=== PATIENT | female | born 1990 | race African-American/Black ===

== ENCOUNTER 2017-06-23 18:40 | Emergency (ER) | payer OTHER ==
[2017-06-23 18:54] VITALS: BP 117/87; PULSE 105; TEMP 98.3; BMI 28.3
--- NOTE | 2017-06-23 20:09 | PDOC ---
History of Present Illness - General History Source: Patient Exam Limitations: No Limitations <Anders Tsang - Last Filed: 06/23/17 20:02> - History of Present Illness Initial Comments: 06/23/17 20:09 The patient is a 26 year old female, with no significant past medical history, who presents to the emergency department with sudden onset of allergic reaction secondary to eating shrimp this evening. She reports having a similar reaction to shrimp in the past, but was unsure if it was an allergy. She states she subsequently developed hives diffuse over her body and slight SOB. She reports resolution of her symptoms after treatment with EMS. She denies chest pain, headache and dizziness. She denies fever, chills, nausea , vomit, diarrhea and constipation. She denies dysuria, frequency, urgency and hematuria. Allergies: NKDA Past surgical history: none reported Social history: Pt denies toxic habits <Melania Byers - Last Filed: 06/23/17 20:10> - General Chief Complaint: Allergic Reaction Stated Complaint: ALLERGIC REACTION Time Seen by Provider: 06/23/17 19:58 Past History - Past Medical History COPD: No - Suicide/Smoking/Psychosocial Hx Smoking History: Never smoked Hx Alcohol Use: No Drug/Substance Use Hx: No Substance Use Type: None <Anders Tsang - Last Filed: 06/23/17 20:02> <Melania Byers - Last Filed: 06/23/17 20:10> - Past Medical History Allergies/Adverse Reactions: Allergies Allergy/AdvReac Type Severity Reaction Status Date / Time No Known Allergies Allergy Verified 06/23/17 18:46 Home Medications: Ambulatory Orders Acetaminophen/Caffeine/Butalb [Fioricet -] 2 tab PO Q6H #30 tablet MDD 8 Aspirin/Acetaminophen/Caffeine [Excedrin Migraine Caplet] 2 each PO QID #30 tablet 02/09/16 Diphenhydramine HCl [Benadryl Capsules -] 25 mg PO TID #30 capsule 06/23/17 Loratadine [Claritin] 10 mg PO DAILY #30 tablet 06/23/17 Prednisone [Deltasone -] 40 mg PO DAILY #14 tablet 06/23/17 Review of Systems - Review of Systems Able to Perform ROS?: Yes Comments:: 06/23/17 20:10 CONSTITUTIONAL: Absent: fever, chills, diaphoresis, generalized weakness, malaise, loss of appetite HEENT: Absent: rhinorrhea, nasal congestion, throat pain, throat swelling, difficulty swallowing, mouth swelling, ear pain, eye pain, visual Changes CARDIOVASCULAR: Absent: chest pain, syncope, palpitations, irregular heart rate, lightheadedness , peripheral edema RESPIRATORY: (+) shortness of breath (resolved now), Absent: cough, dyspnea with exertion, orthopnea, wheezing, stridor, hemoptysis GASTROINTESTINAL: Absent: abdominal pain, abdominal distension, nausea, vomiting, diarrhea, constipation, melena, hematochezia GENITOURINARY: Absent: dysuria, frequency, urgency, hesitancy, hematuria, flank pain, genital pain MUSCULOSKELETAL: Absent: myalgia, arthralgia, joint swelling SKIN: (+) hives diffusely (resolved now). Absent: rash, itching, pallor HEMATOLOGIC/IMMUNOLOGIC: Absent: easy bleeding, easy bruising, lymphadenopathy, frequent infections ENDOCRINE: Absent: unexplained weight gain, unexplained weight loss, heat intolerance, cold intolerance NEUROLOGIC: Absent: headache, focal weakness or paresthesias, dizziness, unsteady gait, seizure, mental status changes, bladder or bowel incontinence PSYCHIATRIC: Absent: anxiety, depression, suicidal or homicidal ideation, hallucinations. <Melania Byers - Last Filed: 06/23/17 20:10> *Physical Exam - Vital Signs Last Vital Signs Temp Pulse Resp BP Pulse Ox 98.3 F 105 H 20 117/87 99 06/23/17 18:47 06/23/17 18:47 06/23/17 18:47 06/23/17 18:47 06/23/17 18:47 <Anders Tsang - Last Filed: 06/23/17 20:02> - Vital Signs Last Vital Signs Temp Pulse Resp BP Pulse Ox 98.3 F 105 H 20 117/87 99 06/23/17 18:47 06/23/17 18:47 06/23/17 18:47 06/23/17 18:47 06/23/17 18:47 - Physical Exam Comments: 06/23/17 20:10 GENERAL: Well developed, well nourished. Awake and alert. No acute distress. HEENT: Normocephalic, atraumatic. PERRLA, EOMI. No conjunctival pallor. Sclera are non- icteric. Moist mucous membranes. Oropharynx is clear. NECK: Supple. Full ROM. No JVD. Carotid pulses 2+ and symmetric, without bruits. No thyromegaly. No lymphadenopathy. CARDIOVASCULAR: Regular rate and rhythm. No murmurs, rubs, or gallops. Distal pulses are 2+ and symmetric. PULMONARY: No evidence of respiratory distress. Lungs clear to auscultation bilaterally. No wheezing, rales or rhonchi. ABDOMINAL: Soft. Non-tender. Non-distended. No rebound or guarding. No organomegaly. Normoactive bowel sounds. MUSCULOSKELETAL Normal range of motion at all joints. No bony deformities or tenderness. No CVA tenderness. EXTREMITIES: No cyanosis. No clubbing. No edema. No calf tenderness. SKIN: Warm and dry. Normal capillary refill. No rashes. No jaundice. NEUROLOGICAL: Alert, awake, appropriate. Cranial nerves 2-12 intact. Normoreflexic in the upper and lower extremities. Normal speech. Toes are down-going bilaterally. Gait is normal without ataxia. PSYCHIATRIC: Cooperative. Good eye contact. Appropriate mood and affect. <Melania Byers - Last Filed: 06/23/17 20:10> Medical Decision Making - Medical Decision Making 06/23/17 20:06 Dr. Tsang: The scribe's documentation has been prepared under my direction and personally reviewed by me in its entirery. I confirm that the note above accurately reflects all work, treatment, procedures, and medical decision making performed by me. Pt feels better after pt received treatment by EMS. NO wheezing or lesions anywhere on her body. Pt will be discharged. Rx sent to pharmacy <Anders Tsang - Last Filed: 06/23/17 20:02> *DC/Admit/Observation/Transfer - Discharge Dispostion Admit: No <Anders Tsang - Last Filed: 06/23/17 20:02> - Attestations Scribe Attestion: 06/23/17 20:10 Documentation prepared by Melania Byers, acting as director of graduate medical education for Anders Tsang DO <Melania Byers - Last Filed: 06/23/17 20:10> Diagnosis at time of Disposition: Allergic reaction Qualifiers: Encounter type: initial encounter Qualified Code(s): T78.40XA - Allergy, unspecified, initial encounter - Discharge Dispostion Disposition: HOME Condition at time of disposition: Stable - Prescriptions Prescriptions: Diphenhydramine HCl [Benadryl Capsules -] 25 mg PO TID #30 capsule Loratadine [Claritin] 10 mg PO DAILY #30 tablet Prednisone [Deltasone -] 40 mg PO DAILY #14 tablet - Referrals Referrals: Malorie Alarcon MD [Primary Care Provider] - - Patient Instructions Printed Discharge Instructions: DI for General Allergic Reactions - Post Discharge Activity
[2017-06-23] MEDS ORDERED: predniSONE 20 MG TABLET (UD) PO ONE (20:10)
[2017-06-23] MEDS ORDERED: predniSONE 20 MG TABLET (UD) ONE (20:13)
== END 2017-06-23 20:18 | disposition home or self-care (01) ==
LOC: JER 18:40
DX: T78.1XXA Other adverse food reactions, not elsewhere classified, initial encounter (principal); L50.0 Allergic urticaria; X58.XXXA Exposure to other specified factors, initial encounter
CPT/HCPCS: 99281-25

== ENCOUNTER 2017-09-09 13:00 | Emergency (ER) | payer OTHER ==
[2017-09-09 13:21] VITALS: BP 120/77; PULSE 82; TEMP 98.9; BMI 29.8
--- NOTE | 2017-09-09 13:36 | PDOC ---
History of Present Illness - General Chief Complaint: Cold Symptoms Stated Complaint: FLU Time Seen by Provider: 09/09/17 13:15 - History of Present Illness Initial Comments: 09/09/17 13:37 Chief complaint: Flu symptoms History of present illness: 2 days with congestion, sore throat, earache, body aches. No fever, chest pain, shortness of breath, nausea, vomiting, diarrhea Review of systems: As above. Otherwise negative Past medical history: Healthy female, no past her present medical or surgical problems of a significant nature. No medications other than Tylenol at home. Social history: Works in a retirement, no tobacco alcohol or nonprescription drugs Family history: Reviewed and noncontributory Physical exam: Alert oriented well-developed well-nourished no acute distress cooperative Afebrile vital signs normal HEENT clear Neck supple without bruit mass or nodes Chest clear CV regular without murmur rub or gallop Abdomen benign Skin clear, no rash, adequate turgor and wet mucous membranes Neurological intact gait stable and unimpaired Impression: Probable influenza Plan: Tamiflu, rest fluids Tylenol or Advil, recheck if symptoms worsen, especially if there is chest pain, shortness of breath, nausea vomiting or diarrhea. Past History - Past Medical History Allergies/Adverse Reactions: Allergies Allergy/AdvReac Type Severity Reaction Status Date / Time No Known Allergies Allergy Verified 09/09/17 13:16 Home Medications: Ambulatory Orders Oseltamivir Phosphate [Tamiflu] 75 mg PO BID #10 capsule 09/09/17 COPD: No - Suicide/Smoking/Psychosocial Hx Smoking History: Never smoked Hx Alcohol Use: No Drug/Substance Use Hx: No Substance Use Type: None *Physical Exam - Vital Signs Last Vital Signs Temp Pulse Resp BP Pulse Ox 98.9 F 82 15 120/77 100 09/09/17 13:12 09/09/17 13:12 09/09/17 13:12 09/09/17 13:12 09/09/17 13:12 *DC/Admit/Observation/Transfer Diagnosis at time of Disposition: Viral upper respiratory infection - Discharge Dispostion Disposition: HOME Condition at time of disposition: Stable Admit: No - Prescriptions Prescriptions: Oseltamivir Phosphate [Tamiflu] 75 mg PO BID #10 capsule - Referrals Referrals: Malorie Alarcon MD [Primary Care Provider] - 3 days - Patient Instructions Printed Discharge Instructions: DI for Viral Upper Respiratory Infection -- Adult Additional Instructions: Rest, lots of fluids, Tylenol or Advil for fever or body aches, prescription medication as directed. Return for recheck if symptoms worsen, especially if there is chest pain, shortness of breath, abdominal pain, nausea, vomiting, diarrhea, or high fever. Otherwise follow-up with your primary physician - Post Discharge Activity Forms/Work/School Notes: Back to Work
== END 2017-09-09 13:49 | disposition home or self-care (01) ==
LOC: FER 13:05
DX: J06.9 Acute upper respiratory infection, unspecified (principal)
CPT/HCPCS: 99281-25

== ENCOUNTER 2017-10-14 13:22 | Emergency (ER) | payer OTHER ==
--- NOTE | 2017-10-14 13:30 | PDOC ---
Rapid Medical Evaluation Chief Complaint: Chest Pain Time Seen by Provider: 10/14/17 13:28 Medical Evaluation: Allergies Allergy/AdvReac Type Severity Reaction Status Date / Time No Known Allergies Allergy Verified 10/14/17 13:28 10/14/17 13:29 The patient presents with a chief complaint of: chest pain I have performed a brief in-person evaluation of this patient. Pertinent physical exam findings: vss, I have ordered the following: ekg The patient will proceed to the ED for further evaluation.
[2017-10-14 13:32] VITALS: BP 132/58; PULSE 88; TEMP 98.3; BMI 30.4
--- NOTE | 2017-10-14 14:01 | PDOC ---
History of Present Illness - General Chief Complaint: Chest Pain Stated Complaint: SOB Time Seen by Provider: 10/14/17 13:28 History Source: Patient - History of Present Illness Presenting Symptoms: Chest Pain Timing/Duration: reports: intermittent Severity/Quality: reports: mild Past History - Past Medical History Allergies/Adverse Reactions: Allergies Allergy/AdvReac Type Severity Reaction Status Date / Time No Known Allergies Allergy Verified 10/14/17 13:28 Home Medications: Ambulatory Orders NK [No Known Home Medication] 10/14/17 COPD: No Other medical history: DENIES. - Surgical History Appendectomy: Yes - Suicide/Smoking/Psychosocial Hx Smoking History: Never smoked Hx Alcohol Use: No Drug/Substance Use Hx: No Substance Use Type: None Review of Systems - Review of Systems Constitutional: No: Chills, Fever Respiratory: No: Cough, Shortness of Breath Cardiac (ROS): Yes: Chest Pain. No: Lightheadedness, Palpitations, Syncope *Physical Exam - Vital Signs Last Vital Signs Temp Pulse Resp BP Pulse Ox 98.3 F 88 19 132/58 99 10/14/17 13:28 10/14/17 13:28 10/14/17 13:28 10/14/17 13:28 10/14/17 13:28 - Physical Exam General Appearance: Yes: Appropriately Dressed. No: Apparent Distress HEENT: positive: Normal Voice Neck: positive: Supple Respiratory/Chest: positive: Lungs Clear, Normal Breath Sounds. negative: Respiratory Distress Cardiovascular: positive: Regular Rate, S1, S2 Extremity: positive: Normal Inspection Integumentary: positive: Dry, Warm Neurologic: positive: Fully Oriented, Alert, Normal Mood/Affect ED Treatment Course - ADDITIONAL ORDERS Additional order review: Laboratory Results 10/14/17 14:06 Urine HCG, Qual Negative - RADIOLOGY Radiology Studies Ordered: Category Date Time Status CHEST PA & LAT [RAD] Stat Radiology 10/14/17 13:48 Ordered Medical Decision Making - Medical Decision Making 10/14/17 13:58 26-year-old female, denies any past medical history here with chest pain. Patient reports sharp L sided, non-radiating chest pain x 1 week. States pain lasts for seconds and worse with deep inspiration. Otherwise, no shortness of breath and denies palpitations, diaphoresis, dizziness, leg pain or swelling. No cough, f/c. Patient not on control. No other obvious risk factors for DVT/PE. No h/o similar pain See exam CP Complained of cough at triage but not to me No comormidities PERCs out Well shanon and stable w/ unremarkable exam EKG done at triage and unremarkable as d/w ED attg -CXR pending -anticipate dc w/ PMD f/u 10/14/17 15:32 Patient eloped while waiting for chest x-ray as per ER nurse. I then called patient several times in the waiting room and no answer. *DC/Admit/Observation/Transfer Diagnosis at time of Disposition: Chest pain Qualifiers: Chest pain type: unspecified Qualified Code(s): R07.9 - Chest pain, unspecified - Discharge Dispostion Disposition: ELOPED Condition at time of disposition: Stable - Referrals Referrals: Malorie Alarcon MD [Primary Care Provider] - - Patient Instructions Printed Discharge Instructions: DI for Atypical Chest Pain - Post Discharge Activity Forms/Work/School Notes: Back to Work
--- NOTE | 2017-10-14 14:32 | EKG ---
Test Reason : Blood Pressure : / mmHG Vent. Rate : 070 BPM Atrial Rate : 070 BPM P-R Int : 142 ms QRS Dur : 084 ms QT Int : 350 ms P-R-T Axes : 059 067 036 degrees QTc Int : 378 ms SINUS RHYTHM WITH MARKED SINUS ARRHYTHMIA OTHERWISE NORMAL ECG WHEN COMPARED WITH ECG OF 09-FEB-2016 00:33, NO SIGNIFICANT CHANGE WAS FOUND Confirmed by WAYNE FLORES MD ([id number]) on 10/14/2017 2:32:15 PM Referred By: Confirmed By:WAYNE FLORES MD
== END 2017-10-14 15:27 | disposition left against medical advice (07) ==
LOC: JERFT 13:22
DX: R07.9 Chest pain, unspecified (principal)
CPT/HCPCS: 84703; 93005; 93010; 99281-25

== ENCOUNTER 2017-10-31 19:15 | Emergency (ER) | payer OTHER ==
[2017-10-31 19:18] VITALS: BP 109/64; PULSE 77; TEMP 99; BMI 30.4
--- NOTE | 2017-10-31 19:26 | PDOC ---
History of Present Illness - General History Source: Patient Exam Limitations: No Limitations - History of Present Illness Initial Comments: 10/31/17 19:35 A portion of this note was documented by scribe services under my direction. I have reviewed the details of the note, within reason, and agree with the documentation. The case summary and management plan written by me. Assessment and plan: This is a 26 her old female who comes in complaining of 2 days of sore throat. Patient denies any fevers, shortness of breath, cough, congestion or any other symptoms. Patient on exam has an exam that is consistent with a viral pharyngitis as it is no exudate lymphadenopathy or fevers. Patient reassured and told that all she needs a symptomatic relief and disch. patient comes in with her mother who has same symptoms as her. <Denise Meier I - Last Filed: 10/31/17 19:35> - History of Present Illness Initial Comments: 10/31/17 19:41 The patient is a 26 year old female, with no significant past medical history, who presents to the emergency department with, two days of sore throat. The patient states that beginning yesterday she began to notice an ear itching sensation and reports a mild sore throat. The patient also states she has a slight non productive cough. The patient states she visited her uncle recently who is currently sick. She denies recent fevers, chills, headache or dizziness. She denies recent nausea, vomit, diarrhea or constipation. She denies recent dysuria, frequency, urgency or hematuria. She denies recent chest pain or shortness of breath PAST MEDICAL HISTORY: no significant history PAST SURGICAL HISTORY: no significant history FAMILY HISTORY: no pertinent history SOCIAL HISTORY: Pt lives with family and is employed. MEDICATIONS: reviewed ALLERGIES: As per nursing notes Review of Systems General: No fevers or chills, no weakness, no weight loss HEENT: +Sore throat. +Bilateral ear discomfort/ itchy sensation. No change in vision. CardioVascular: No chest pain or shortness of breath Respiratory: +Nonproductive cough. No wheezing. Gastrointestinal: no nausea, vomiting, diarrhea or constipation, No rectal bleeding Genitourinary: No dysuria, hematuria, or frequency Musculoskeletal: No joint or muscle pain or swelling Neurologic: No headache, vertigo, dizziness or loss of consciousness Psychiatric: nor depression Skin: No rashes or easy bruising Endocrine: no increased thirst or abnormal weight change Allergic: no skin or latex allergy All other systems reviewed and normal Physical Exam GENERAL: The patient is awake, alert, and fully oriented, in no acute distress. HEAD: Normal with no signs of trauma. EYES: Pupils equal, round and reactive to light, extraocular movements intact, sclera anicteric, conjunctiva clear. EAR: Tympanic membranes and external ear canals were normal. THROAT: +Mild erythema posterior oropharynx. No lymphadenopathy. No exudates. EXTREMITIES: Normal range of motion, no edema. NEUROLOGICAL: Normal speech, normal gait. PSYCH: Normal mood, normal affect. SKIN: Warm, Dry, normal turgor, no rashes or lesions noted. <Néstor Thrasher - Last Filed: 10/31/17 19:55> - General Chief Complaint: Sore Throat Stated Complaint: SORE THROAT Time Seen by Provider: 10/31/17 19:25 Past History - Past Medical History COPD: No - Surgical History Appendectomy: Yes - Suicide/Smoking/Psychosocial Hx Smoking History: Never smoked Hx Alcohol Use: No Drug/Substance Use Hx: No Substance Use Type: None <Denise Meier I - Last Filed: 10/31/17 19:35> <Néstor Thrasher - Last Filed: 10/31/17 19:55> - Past Medical History Allergies/Adverse Reactions: Allergies Allergy/AdvReac Type Severity Reaction Status Date / Time No Known Allergies Allergy Verified 10/14/17 13:28 Home Medications: Ambulatory Orders NK [No Known Home Medication] 10/14/17 *Physical Exam - Vital Signs Last Vital Signs Temp Pulse Resp BP Pulse Ox 99 F 77 16 109/64 100 10/31/17 19:16 10/31/17 19:16 10/31/17 19:16 10/31/17 19:16 10/31/17 19:16 <Denise Meier I - Last Filed: 10/31/17 19:35> - Vital Signs Last Vital Signs Temp Pulse Resp BP Pulse Ox 99 F 77 16 109/64 100 10/31/17 19:16 10/31/17 19:16 10/31/17 19:16 10/31/17 19:16 10/31/17 19:16 <Néstor Thrasher - Last Filed: 10/31/17 19:55> *DC/Admit/Observation/Transfer - Discharge Dispostion Admit: No <Denise Meier I - Last Filed: 10/31/17 19:35> - Attestations Scribe Attestion: 10/31/17 19:43 Documentation prepared by Néstor Thrasher, acting as certified medical coder for Denise Meier MD. <Néstor Thrasher - Last Filed: 10/31/17 19:55> Diagnosis at time of Disposition: Acute viral pharyngitis - Discharge Dispostion Disposition: HOME Condition at time of disposition: Stable - Referrals Referrals: Malorie Alarcon MD [Primary Care Provider] - - Patient Instructions Printed Discharge Instructions: Viral Pharyngitis Additional Instructions: Your symptoms are secondary to a virus which will run its course without need for further intervention Tylenol or Motrin as needed for discomfort or feversReturn to the emergency department immediately with ANY new, persistent or worsening symptoms. Continue any medications as previously prescribed by your physician. You should follow up with your primary doctor as soon as possible regarding today's emergency department visit. . Please make sure your doctor reviews the results of your emergency evaluation. Thank you for coming to the Emergency Department today for your care. It was a pleasure to see you today. Please note that your evaluation is INCOMPLETE until you follow-up with your doctor. - Post Discharge Activity
== END 2017-10-31 19:45 | disposition home or self-care (01) ==
LOC: FER 19:15
DX: J02.9 Acute pharyngitis, unspecified (principal); B97.89 Other viral agents as the cause of diseases classified elsewhere
CPT/HCPCS: 99281-25

== ENCOUNTER 2018-04-24 22:35 | Emergency (ER) | payer OTHER ==
[2018-04-24 22:39] VITALS: BP 117/72; PULSE 80; TEMP 98.6; BMI 30.9
--- NOTE | 2018-04-25 00:17 | PDOC ---
History of Present Illness <Ginny Neumann - Last Filed: 04/25/18 01:17> - General History Source: Patient Exam Limitations: No Limitations - History of Present Illness Initial Comments: 04/25/18 00:35 27 year old female with no PMH presenting to ED for right sided chest pain since 0530 yesterday. She states that she awoke from bed with sharp, right sided chest pain, 10/10, non-radiating, constant, no alleviating factors, aggravated by inspiration and movement. She admits to right arm weakness secondary to pain, and right sided neck pain with movement. She also admits to 1 episode of right sided facial numbness when she awoke yesterday morning at 0300, she went back to sleep and it self-resolved by time she awoker again at 0530. She denies fever, chills, nausea, vomiting, diarrhea, abdominal pain, palpitations, shortness of breath, headache. PCP - Dr. Amado Allergies - Amoxicillin Surgical Hx - appendectomy, age 16 yo Denies nicotine use, etoh use, illicit drug use <Moira Baker - Last Filed: 04/25/18 01:23> - General Chief Complaint: Head/Neck problem Stated Complaint: CHEST PAIN/ RIGHT SIDE BODY PAIN Time Seen by Provider: 04/25/18 00:16 Past History <Ginny Neumann - Last Filed: 04/25/18 01:17> - Past Medical History COPD: No - Surgical History Appendectomy: Yes - Suicide/Smoking/Psychosocial Hx Smoking History: Never smoked Hx Alcohol Use: No Drug/Substance Use Hx: No Substance Use Type: None <Moira Baker - Last Filed: 04/25/18 01:23> - Past Medical History Allergies/Adverse Reactions: Allergies Allergy/AdvReac Type Severity Reaction Status Date / Time amoxicillin Allergy Verified 04/24/18 22:39 Home Medications: Ambulatory Orders Ibuprofen [Motrin -] 600 mg PO TID #30 tablet 04/25/18 Methocarbamol [Robaxin -] 500 mg PO TID #30 tablet 04/25/18 Review of Systems - Review of Systems Able to Perform ROS?: Yes Comments:: 04/25/18 00:38 General: denies fever, chills, night sweats, generalized weakness. HEENT: denies sore throat, rhinorrhea, ear pain. Heart: admits to chest pain. denies palpitations, syncope, lower extremity swelling, diaphoresis. Respiratory: denies shortness of breath, cough, sputum production, hemoptysis. Abdomen: denies abdominal pain, nausea, vomiting, diarrhea, constipation, blood in stool. : denies dysuria, increased urinary frequency, hematuria, urinary incontinence , flank pain. Back: denies back pain. Musculoskeletal: admits to right sided neck pain, admits to right arm pain. Neurological: admits to numbness, weakness. denies headache, dizziness, tingling. Skin: denies rash, laceration, abrasion. <Moira Baker - Last Filed: 04/25/18 01:23> *Physical Exam - Vital Signs Last Vital Signs Temp Pulse Resp BP Pulse Ox 98.6 F 80 18 117/72 100 04/24/18 22:36 04/24/18 22:36 04/24/18 22:36 04/24/18 22:36 04/24/18 22:36 <Ginny Neumann - Last Filed: 04/25/18 01:17> - Vital Signs Last Vital Signs Temp Pulse Resp BP Pulse Ox 98.6 F 80 18 117/72 100 04/24/18 22:36 04/24/18 22:36 04/24/18 22:36 04/24/18 22:36 04/24/18 22:36 - Physical Exam Comments: 04/25/18 00:40 Constitutional: Well-nourished, Well-developed, appearing stated age. HEENT: head is normocephalic, atraumatic. EOMI. PERRLA. Neck: supple. Full ROM. no midline c-spine tenderness. tenderness to palpation of right sternocleidomastoid. tenderness to palpation of right trapezius. reproduction of pain with extension of right arm. Heart: regular rhythm. no murmurs, rubs or gallops. Lungs: clear to auscultation bilaterally. no crackles, rhonchi or wheezing. no stridor. Abdomen: soft, nontender. normal bowel sounds. no rebound, guarding, masses. Extremities: Peripheral pulses intact and equal. No lower extremity edema. Neurological: Alert. Oriented x3. CN2-12 intact. 5/5 strength all extremities. Full and equal sensation to all extremities and bilateral face. Romberg negative. Finger to nose normal. Gait normal. Psych: awake, alert, oriented x3. Follows commands. Answers questions appropriately. <Moira Baker - Last Filed: 04/25/18 01:23> ED Treatment Course - Medications Given in the ED: ED Medications Discontinued Medications Generic Name Dose Route Start Last Admin Trade Name Sayda PRN Reason Stop Dose Admin Cyclobenzaprine HCl 5 mg 04/25/18 00:34 04/25/18 00:43 Flexeril - PO 04/25/18 00:35 5 mg ONCE ONE Administration Ketorolac Tromethamine 60 mg 04/25/18 00:33 04/25/18 00:43 Toradol Injection - IM 04/25/18 00:34 60 mg ONCE ONE Administration <Ginny Neumann - Last Filed: 04/25/18 01:17> Medical Decision Making - Medical Decision Making 04/25/18 00:41 27 year old female with no PMH presenting to ED for right sided chest pain since 529 yesterday. She states that she awoke from bed with sharp, right sided chest pain, 10/10, non-radiating, constant, no alleviating factors, aggravated by inspiration and movement. Pain is associated with self-reported right arm weakness/pain and right sided neck pain. Initial Vital Signs Temp Pulse Resp BP Pulse Ox 98.6 F 80 18 117/72 100 04/24/18 22:36 04/24/18 22:36 04/24/18 22:36 04/24/18 22:36 04/24/18 22:36 Afebrile. No tachycardia. No hypertension or hypotension. No hypoxia on room air. Pain is likely musculoskeletal in origin, reproducible with neck movement, right arm extension and breathing. - Toradol ordered - Flexeril ordered Low suspicion for ACS/arrhythmia, 27 years old, no palpitations, no tachycardia or bradycardia, normal heart sounds. - No EKG indicated at this time. Low suspicion for PE - WELLS score = 0 - PERC score = 0 - No CTA indicated at this time 04/25/18 01:22 Pt reports pain is slightly improved. Pt will be discharged with Roboxin prescription, follow up instructions, and strict return precautions. <Moira Baker - Last Filed: 04/25/18 01:23> *DC/Admit/Observation/Transfer - Discharge Dispostion Decision to Admit order: No <Ginny Neumann - Last Filed: 04/25/18 01:17> - Discharge Dispostion Decision to Admit order: No <Moira Baker - Last Filed: 04/25/18 01:23> Diagnosis at time of Disposition: Chest pain - Discharge Dispostion Disposition: HOME Condition at time of disposition: Stable - Prescriptions Prescriptions: Ibuprofen [Motrin -] 600 mg PO TID #30 tablet Methocarbamol [Robaxin -] 500 mg PO TID #30 tablet - Referrals Referrals: Malorie Alarcon MD [Primary Care Provider] - - Patient Instructions Printed Discharge Instructions: DI for Muscle Strain Additional Instructions: Your pain is likely due to a muscle strain. Rest the affected area for 5 days or until pain resides. Take tylenol or motrin over the counter for pain. Drink lots of clear fluids, like water or gatorade, to stay hydrated. I have sent a prescription to your pharmacy for a muscle relaxer. 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 Take as prescribed. Do not drive tonight. Do not drive when you take the muscle relaxer. Return to the Emergency Department for increasing pain, palpitations, shortness of breath, coughing up blood, leg swelling, calf pain, passing out, lightheadedness or any other new, worsening or concerning symptoms. Follow up with your primary care doctor within 5 days. Call their office thursday and tell them you were seen in the Emergency Department and make an appointment for as soon as they have available. - Post Discharge Activity Forms/Work/School Notes: Back to Work
--- NOTE | 2018-04-25 00:20 | PDOC ---
Attending Attestation - HPI HPI: 04/25/18 00:52 The patient is a 27 year old female, with no significant past medical history, who presents to the emergency department with, right sided chest pain since this morning. The patient describes her pain as constant, sharp, pleuritic, and worsening with movement. The patient also endorses decreased ROM of the right hand secondary to pain. She denies recent shortness of breath or palpitations. She denies recent fevers , chills, headache or dizziness. She denies recent nausea, vomit, diarrhea or constipation. She denies recent dysuria, frequency, urgency or hematuria. Allergies: Amoxicillin Primary Care Physician: Dr. Alarcon - Physicial Exam PE: 04/25/18 01:18 GENERAL: Awake, alert, and fully oriented, in no acute distress HEAD: No signs of trauma EYES: PERRLA, EOMI, sclera anicteric, conjunctiva clear ENT: Auricles normal inspection, hearing grossly normal, nares patent, oropharynx clear without exudates. Moist mucosa NECK: Normal ROM, supple, no lymphadenopathy, JVD, or masses LUNGS: Breath sounds equal, clear to auscultation bilaterally. No wheezes, and no crackles HEART: Regular rate and rhythm, normal S1 and S2, no murmurs, rubs or gallops ABDOMEN: Soft, nontender, normoactive bowel sounds. No guarding, no rebound. No masses EXTREMITIES: Normal range of motion, no edema. No clubbing or cyanosis. No cords, erythema, or tenderness NEUROLOGICAL: Cranial nerves II through XII grossly intact. Normal speech, normal gait SKIN: Warm, Dry, normal turgor, no rashes or lesions noted. <Miguelangel Padgett - Last Filed: 04/25/18 01:18> - Resident Resident Name: Moira Baker - ED Attending Attestation I have performed the following: I have examined & evaluated the patient, The case was reviewed & discussed with the resident, I agree w/resident's findings & plan - Medical Decision Making 04/25/18 04:01 Pt has a completely normal exam. She will be discharged home with muscle relaxants and pain meds. She took no meds for the pain. <Ginny Neumann - Last Filed: 04/25/18 04:02> Attestations - Attestations 04/25/18 00:53 Documentation prepared by Miguelangel Padgett, acting as director medical surgical for Ginny Neumann MD. <Miguelangel Padgett - Last Filed: 04/25/18 01:18>
[2018-04-25] MEDS ORDERED: KETOROLAC TROMETHAMINE 60 MG/2 ML VIAL IM ONE (00:33)
[2018-04-25] MEDS ORDERED: CYCLOBENZAPRINE HCL 10 MG TABLET (FP) PO ONE (00:34)
[2018-04-25] MEDS ORDERED: KETOROLAC TROMETHAMINE 60 MG/2 ML VIAL ONE (00:37)
[2018-04-25] MEDS ORDERED: CYCLOBENZAPRINE HCL 10 MG TABLET (FP) ONE (00:38)
== END 2018-04-25 01:23 | disposition home or self-care (01) ==
LOC: JER 22:35
PROC: 3E0233Z Introduction of Anti-inflammatory into Muscle, Percutaneous Approach (ICD-10-PCS; principal; 2018-04-24)
DX: R07.9 Chest pain, unspecified (principal)
CPT/HCPCS: 96372; 99283-25

== ENCOUNTER 2018-10-07 09:05 | Emergency (ER) | payer OTHER ==
[2018-10-07 09:16] VITALS: BP 112/73; PULSE 83; TEMP 98.4; BMI 31.7
--- NOTE | 2018-10-07 09:54 | PDOC ---
History of Present Illness - General Chief Complaint: Chest Pain Stated Complaint: CHEST PAIN Time Seen by Provider: 10/07/18 09:29 History Source: Patient Exam Limitations: Clinical Condition - History of Present Illness Initial Comments: 10/07/18 09:49 Patient with no significant past medical history present with complaint of 6 day history of persistent yellow productive cough with chest pain from coughing , nasal congestion and runny nose. Patient denies shortness of breath, palpitation, fever, chills, nausea, vomiting or sweats. Patient denies any numbness or tingling sensation. Denies headache, dizziness or lightheadedness.Patient denies any other symptoms Timing/Duration: other (6 days) Past History - Past Medical History Allergies/Adverse Reactions: Allergies Allergy/AdvReac Type Severity Reaction Status Date / Time amoxicillin Allergy Verified 10/07/18 09:16 Home Medications: Ambulatory Orders Azithromycin [Zithromax 250mg Tablets -] 250 mg PO UTDICT #6 tab 10/07/18 Benzonatate [Tessalon Pearls -] 100 mg PO TID PRN #21 capsule 10/07/18 Ipratropium [place] 2 spray NS BID PRN #1 spray 10/07/18 Methylprednisolone [Medrol Dose Homero] 4 mg PO ASDIR #21 tablet 10/07/18 COPD: No Other medical history: DENIES - Surgical History Appendectomy: Yes - Immunization History Immunization Up to Date: Yes - Suicide/Smoking/Psychosocial Hx Smoking History: Never smoked Information on smoking cessation initiated: No Hx Alcohol Use: No Drug/Substance Use Hx: No Substance Use Type: None Review of Systems - Review of Systems Able to Perform ROS?: Yes Is the patient limited Kinyarwanda proficient: No Constitutional: No: Chills, Fever, Malaise, Weakness HEENTM: Yes: Symptoms Reported, See HPI, Nose Congestion. No: Eye Pain, Blurred Vision, Tearing, Recent change in vision, Double Vision, Cataracts, Ear Pain, Ocular Prothesis, Ear Discharge, Nose Pain, Tinnitus, Nose Bleeding, Hearing Loss, Throat Pain, Throat Swelling, Mouth Pain, Dental Problems, Difficulty Swallowing, Mouth Swelling, Other Respiratory: Yes: Symptoms reported, See HPI, Cough, Productive cough. No: Orthopnea, Shortness of Breath, SOB with Exertion, SOB at Rest, Stridor, Wheezing, Hemoptysis, Other Cardiac (ROS): No: Symptoms Reported, See HPI, Chest Pain, Edema, Irregular Heart Rate, Lightheadedness, Palpitations, Syncope, Chest Tightness, Other ABD/GI: No: Constipated, Diarrhea, Nausea, Vomiting, Abdominal cramping Neurological: No: Headache, Numbness, Paresthesia, Tingling, Weakness, Dizziness All Other Systems: Reviewed and Negative *Physical Exam - Vital Signs Last Vital Signs Temp Pulse Resp BP Pulse Ox 98.4 F 83 17 112/73 98 10/07/18 09:11 10/07/18 09:11 10/07/18 09:11 10/07/18 09:11 10/07/18 09:11 - Physical Exam Comments: 10/07/18 09:51 GENERAL: Well developed, well nourished. Awake and alert. No acute distress. HEENT: Normocephalic, atraumatic. PERRLA, EOMI. No conjunctival pallor. Sclera are non-icteric. Moist mucous membranes. Oropharynx is clear. NECK: Supple. Full ROM. CARDIOVASCULAR: Regular rate and rhythm. No murmurs, rubs, or gallops. Distal pulses are 2+ and symmetric. PULMONARY: No evidence of respiratory distress. Lungs clear to auscultation bilaterally. No wheezing, rales or rhonchi. ABDOMINAL: Soft. Non-tender. Non-distended. No rebound or guarding. No organomegaly. Normoactive bowel sounds. MUSCULOSKELETAL Normal range of motion at all joints. SKIN: Warm and dry. no cyanosis. Normal capillary refill. No rashes. No jaundice. NEUROLOGICAL: Alert, awake, appropriate. Gait is normal without ataxia. PSYCHIATRIC: Cooperative. Good eye contact. Appropriate mood General Appearance: Yes: Nourished, Appropriately Dressed. No: Apparent Distress Moderate Sedation - Procedure Monitoring Vital Signs: Procedure Monitoring Vital Signs Temperature 98.4 F 10/07/18 09:11 Pulse Rate 83 10/07/18 09:11 Respiratory Rate 17 10/07/18 09:11 Blood Pressure 112/73 10/07/18 09:11 O2 Sat by Pulse Oximetry (%) 98 10/07/18 09:11 ED Treatment Course - RADIOLOGY Radiology Studies Ordered: Category Date Time Status CHEST PA & LAT [RAD] Stat Radiology 10/07/18 09:42 Ordered Medical Decision Making - Medical Decision Making 10/07/18 09:51 Patient with no past medical history present with complaint of since day history of URI symptoms with nasal congestion and midsternal chest pain from coughing. Patient reported no chest pain now. Patient in no acute distress. Lungs clear to auscultation bilateral. Normal cardio exam. EKG shows normal sinus rhythm. Patient's symptoms likely URI symptoms with costochondritis from cough. Less likely pneumonia and less likely cardiogenic pain given patient is symptomatic now with normal EKG. Checks x-ray ordered to rule out acute chest pathology. Patient be discharged home with treatment for bronchitis URI if negative chest x-ray with PCP follow- up. 10/07/18 10:33 CXR with no acute infiltrate. Patient stable for outpatient management for acute Bronchitis with PCP follow-up *DC/Admit/Observation/Transfer Diagnosis at time of Disposition: Costochondral chest pain, Cough URI (upper respiratory infection) Qualifiers: URI type: unspecified URI Qualified Code(s): J06.9 - Acute upper respiratory infection, unspecified - Discharge Dispostion Disposition: HOME Condition at time of disposition: Stable Decision to Admit order: No - Prescriptions Prescriptions: Azithromycin [Zithromax 250mg Tablets -] 250 mg PO UTDICT #6 tab Benzonatate [Tessalon Pearls -] 100 mg PO TID PRN #21 capsule PRN Reason: Cough Ipratropium [place] 2 spray NS BID PRN #1 spray PRN Reason: nasal congestion Methylprednisolone [Medrol Dose Homero] 4 mg PO ASDIR #21 tablet - Referrals Referrals: Malorie Alarcon MD [Primary Care Provider] - - Patient Instructions Printed Discharge Instructions: DI for Acute Bronchitis Additional Instructions: Take medications as prescribed. Your chest x-ray shows no pneumonia. Increase fluid intake. Follow-up with primary care. - Post Discharge Activity
--- NOTE | 2018-10-07 15:35 | EKG ---
Test Reason : Blood Pressure : / mmHG Vent. Rate : 074 BPM Atrial Rate : 074 BPM P-R Int : 164 ms QRS Dur : 086 ms QT Int : 378 ms P-R-T Axes : 054 056 031 degrees QTc Int : 419 ms NORMAL SINUS RHYTHM NORMAL ECG WHEN COMPARED WITH ECG OF 25-APR-2018 00:49, NO SIGNIFICANT CHANGE WAS FOUND Confirmed by SHENA CHAN MD ([id number]) on 10/07/2018 3:35:05 PM Referred By: Confirmed By:SHENA CHAN MD
== END 2018-10-07 10:45 | disposition home or self-care (01) ==
LOC: JERFT 09:05
DX: J06.9 Acute upper respiratory infection, unspecified (principal); M94.0 Chondrocostal junction syndrome [Tietze]
CPT/HCPCS: 71046-TC-FY; 93005; 93010; 99281-25

== ENCOUNTER 2019-08-30 16:30 | Emergency (ER) | payer OTHER ==
[2019-08-30 16:40] VITALS: BP 132/92; PULSE 96; TEMP 98.9; BMI 32.5
--- NOTE | 2019-08-30 16:45 | PDOC ---
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 Is unable to take Tamiflu secondary to psychosis side effects - Physicial Exam PE: 08/30/19 18:30 Vitals: Triage Vital signs reviewed General Appearance: No acute distress, well nourished well developed, Head: Atraumatic, Nose: Nares patent bilaterally; + nasal congestion Throat: Posterior oropharynx with erythema, mucous membranes moist, Neck: Supple; no Nucal rigidity Chest Wall: Nontender Cardiac: Regular rate and rhythym, no murmurs, no rubs, no gallops, Lungs: Clear to auscultation bilateral, good air movement bilaterally, Abdomen: Soft, non distended, normal bowel sounds, non tender to palpation Extremities: Full range of motion to all extremities, no cyanosis, clubbing, or edema Skin: Warm and dry, no rashes or lesions, no rash, no petechiae Psych: Normal mood, normal affect - Medical Decision Making 08/30/19 18:31 History and examination consistent with influenza patient does not want Tamiflu based on adverse previous reaction is otherwise young healthy denies any chance of We will manage symptomatically with Tylenol Motrin fluids note for work Patient did request influenza swab given that she works at a SNF Findings, the need for follow-up and strict return instructions discussed with patient.
--- NOTE | 2019-08-30 16:45 | PDOC ---
History of Present Illness - General Chief Complaint: Respiratory Stated Complaint: COUGH, SORE THROAT - History of Present Illness Initial Comments: Vivi Hall is an otherwise healthy 28yo woman who presents with one day of general malaise, body aches, and sore throat. 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 She is concerned that she might also have the flu. She took 800mg ibuprofen about 6 hours ago as she had to complete her workday, but she continues to have symptoms. She denies any fever, chills, cough, congestion, nausea/vomiting, change in bowel habits, ear pain, or other recent symptoms. Past History - Past Medical History Allergies/Adverse Reactions: Allergies Allergy/AdvReac Type Severity Reaction Status Date / Time amoxicillin Allergy Verified 10/07/18 09:16 Home Medications: Ambulatory Orders Azithromycin [Zithromax 250mg Tablets -] 250 mg PO UTDICT #6 tab 10/07/18 Benzonatate [Tessalon Pearls -] 100 mg PO TID PRN #21 capsule 10/07/18 Ipratropium [place] 2 spray NS BID PRN #1 spray 10/07/18 Methylprednisolone [Medrol Dose Homero] 4 mg PO ASDIR #21 tablet 10/07/18 COPD: No - Surgical History Appendectomy: Yes - Immunization History Immunization Up to Date: Yes - Psycho Social/Smoking Cessation Hx Smoking History: Never smoked Have you smoked in the past 12 months: No Information on smoking cessation initiated: No Hx Alcohol Use: No Drug/Substance Use Hx: No Substance Use Type: None Review of Systems - Review of Systems Comments:: General: No fevers, no chills, no weight or appetite change, + malaise HEENT: No changes in vision, no changes in hearing, no congestion, + sore throat CV: No chest pain, no palpitations, no LE edema Pulm: No SOB, no cough, no wheezing GI: No nausea or vomiting, no change in bowel habits, no melena : No frequency, no urgency, no dysuria Musc: No back pain, no joint swelling, no recent injury Skin: No rash, no lesions, no erythema Endo: No excessive thirst, no heat/cold intolerance Heme: No unusual bruising or bleeding, no swollen glands Neuro: No syncope, no numbness/tingling, no focal weakness Vasc: No claudication Psych: No recent change in mood, no SI or HI *Physical Exam - Vital Signs Last Vital Signs Temp Pulse Resp BP Pulse Ox 98.9 F 96 H 18 132/92 97 08/30/19 16:30 08/30/19 16:30 08/30/19 16:30 08/30/19 16:30 08/30/19 16:30 - Physical Exam General: Comfortable, no acute distress HEENT: PERRL, EOMI, MMM, voice normal, normal neck ROM, no pharyngeal erythema or exudate Cards: RRR, no murmur appreciated Pulm: Comfortable on room air, clear to auscultation bilaterally Abd: Soft, nontender, nondistended Ext: Atraumatic. No LE edema. ROM intact.WWP Skin: Normal color, no rashes or lesions Neuro: A&Ox3, CN grossly intact, normal speech, motor/sensory grossly intact and symmetric Psych: Mood appropriate to situation Medical Decision Making - Medical Decision Making 08/30/19 16:42 Vivi Hall is an otherwise healthy 28yo woman who presents with one day of general malaise, body aches, and sore throat. She is concerned for possible influenza as she has had exposure at work. - Most likely viral URI v influenza - Young otherwise healthy woman, would not qualify for treatment with tamiflu - Plan to discharge home with symptomatic treatment pending discussion w/ Dr Walters 08/30/19 17:06 - Following discussion w/ Dr Walters, pt opts for flu testing. Will be called with results. Does not want treatment if positive, but would like documentation for work. Discussed with Dr Selena Mooney PGY2 Discharge - Discharge Information Problems reviewed: Yes Clinical Impression/Diagnosis: Flu-like symptoms Condition: Stable Disposition: HOME - Admission No - Follow up/Referral Referrals: Malorie Alarcon MD [Primary Care Provider] - CallBack Reminder: Influenza - Patient Discharge Instructions Patient Printed Discharge Instructions: DI for Viral Upper Respiratory Infection -- Adult Additional Instructions: Discharge Instructions: You were seen in the emergency department for sore throat, body aches, and chills. Your symptoms are most likely caused by a viral infection such as the common cold or influenza. You should feel better within a week without any additional treatment. Home Care and Follow Up: - Make sure you are drinking plenty of fluids while you are sick. Increase your normal fluid intake. It is OK if you do not feel like eating as long as you are staying well hydrated - You may use medications such as acetaminophen (Tylenol) 650-1000mg or ibuprofen (Advil, Motrin) 400-600mg every 6 hours as needed for pain or fever over 101F - Consider placing a humidifier in your room overnight to help relieve congestion and reduce drying of your nose and mouth. - Use throat lozenges (cough drops) for sore throat or cough - If you use additional cold medications, make sure they do not contain medicines you are already taking such as acetaminophen or ibuprofen - You should feel better within a week, though cough can sometimes last longer. If you are not feeling better in a week, follow up with your primary doctor. - Seek immediate care if you have worsening symptoms, you are unable to stay hydrated, you develop high fevers over 104F that do not come down with medication, or you have any other medical emergency. - Post Discharge Activity Work/Back to School Note: Back to Work
[2019-08-30] MEDS ORDERED: ACETAMINOPHEN 325 MG TABLET (FP) PO ONE (16:51)
[2019-08-30] MEDS ORDERED: ACETAMINOPHEN 325 MG TABLET (FP) ONE (17:03)
== END 2019-08-30 17:10 | disposition home or self-care (01) ==
LOC: FER 16:30
DX: J11.1 Influenza due to unidentified influenza virus with other respiratory manifestations (principal); Z88.8 Allergy status to other drugs, medicaments and biological substances
CPT/HCPCS: 87804; 99282-25